=== PATIENT | female | born 1960 | race Caucasian/White ===

== ENCOUNTER → 2020-01-31 13:07 | Outpatient (CLI) | payer BC, SELFPAY ==
--- NOTE | ~2020-01-31 | MM_ITS ---
EXAMINATION: MM screening [facility] BI w elinor HISTORY: Screening mammogram TECHNIQUE: Craniocaudal and mediolateral oblique 3-D tomosynthesis images were obtained and synthetic 2-D images were generated. CAD analysis was submitted and interpreted. COMPARISON: 06/12/2018, 08/17/2016, 08/12/2015 BREAST PARENCHYMAL COMPOSITION: There are scattered areas of fibroglandular density. FINDINGS: RIGHT BREAST: A low-density masses present in the anterior third of the slightly inner, slightly lowe r breast. LEFT BREAST: There is no evidence of suspicious mass, calcification, or architectural distortion to s uggest malignancy. There has been no significant interval change. IMPRESSION: 1. Right breast mass. 2. Additional mammographic views and possible breast ultrasound are recommended. BI-RADS Category 0: Incomplete: Needs additional imaging evaluation. Reviewed, dictated and finalized at location A. GATOR OVERHEAD IMPRESSION: 1. Right breast mass. 2. Additional mammographic views and possible breast ultrasound are recommended . BI-RADS Category 0: Incomplete: Needs additional imaging evaluation.
== END ==
PROVIDERS: Visit Provider Obstetrics & Gynecology
DX: Z12.31 Encounter for screening mammogram for malignant neoplasm of breast (principal); R92.8 Other abnormal and inconclusive findings on diagnostic imaging of breast
CPT/HCPCS: 77063; 77067

== ENCOUNTER → 2020-02-24 08:38 | Outpatient (CLI) | payer BC, SELFPAY ==
--- NOTE | ~2020-02-24 | MMUS_ITS ---
EXAMINATION: MM diagnostic mammo unilat RT, US breast RT limited HISTORY: Follow-up right breast mass TECHNIQUE: Additional 3-D tomosynthesis images of the right breast were performed and synthetic 2-D i mages were generated. CAD analysis was submitted and interpreted. High resolution right breast ultras ound was performed. COMPARISON: 01/31/2020 BREAST PARENCHYMAL COMPOSITION: Breast composed of scattered areas of fibroglandular density. FINDINGS: MAMMOGRAPHIC FINDINGS: There is persistent focal asymmetry in the lower central aspect of the right breast near the areola. No suspicious calcifications or architectural distortion. ULTRASOUND: Limited periareolar ultrasound of the right breast demonstrates a 9 mm cyst. Mildly prominent ducts a lso noted. No suspicious masses to suggest malignancy. IMPRESSION: 1. No evidence for malignancy in the right breast. Benign findings. 2. Routine yearly screening mammogram and regular clinical breast examination are recommended. BI-RADS Category 2: Benign finding(s). Reviewed, dictated and finalized at location A. CTOR OF CATERING SALES IMPRESSION: 1. No evidence for malignancy in the right breast. Benign findings. 2. Routine yearly screening mammogram and regular clinical breast examination a re recommended. BI-RADS Category 2: Benign finding(s).
== END ==
PROVIDERS: Visit Provider Obstetrics & Gynecology
DX: N60.01 Solitary cyst of right breast (principal)
CPT/HCPCS: 76642; 77065

== ENCOUNTER → 2021-06-17 15:47 | Outpatient (CLI) | payer BC, SELFPAY ==
--- NOTE | ~2021-06-17 | MM_ITS ---
EXAMINATION: MM screening [facility] BI w elinor HISTORY: Screening mammogram TECHNIQUE: Craniocaudal and mediolateral oblique 3-D tomosynthesis images were obtained and synthetic 2-D images were generated. CAD analysis was submitted and interpreted. COMPARISON: 02/24/2020, 01/31/2020, 06/12/2018 BREAST PARENCHYMAL COMPOSITION: The breasts are heterogeneously dense, which may obscure small masses . FINDINGS: There is no suspicious mass, calcification, or architectural distortion to suggest malignan cy in either breast. There has been no suspicious interval change. IMPRESSION: 1. No mammographic evidence of malignancy. 2. Recommend routine screening mammography in one year. BI-RADS Category 1: Negative Reviewed, dictated and finalized at location A.
== END ==
PROVIDERS: Visit Provider Obstetrics & Gynecology
DX: Z12.31 Encounter for screening mammogram for malignant neoplasm of breast (principal)
CPT/HCPCS: 77063; 77067

== ENCOUNTER 2021-11-29 12:15 | Outpatient (CLI) | payer BC, SELFPAY ==
[2021-12-03 12:01] LABS: Testosterone Total 154 ng/dL (2-45)
== END 2021-11-29 12:16 | disposition home or self-care (01) ==
PROVIDERS: PCP Internal Medicine; Visit Provider Obstetrics & Gynecology
DX: N64.52 Nipple discharge (principal)
CPT/HCPCS: 36415; 84403

== ENCOUNTER → 2021-12-14 09:44 | Outpatient (CLI) | payer BC, SELFPAY ==
--- NOTE | ~2021-12-14 | MMUS_ITS ---
EXAMINATION: MM diagnostic [facility] BI w elinor, US breast BI complete HISTORY: Nipple discharge, left breast TECHNIQUE: Bilateral full field and spot 3-D tomosynthesis images were performed and synthetic 2-D im ages were generated. CAD analysis was submitted and interpreted. High resolution breast ultrasound wa s performed. COMPARISON: 06/17/2021 bilateral screening mammogram BREAST PARENCHYMAL COMPOSITION: The breasts are heterogeneously dense, which may obscure small masses . FINDINGS: MAMMOGRAPHIC FINDINGS: Heterogeneously dense stroma is noted in the anterior aspect of both breasts including both subareola r areas, which may obscure small masses. Bilateral breast ultrasound examination was performed. No mammographic suspicious mass, architectural distortion, malignant calcification, skin thickening o r retraction of either breast is evident. ULTRASOUND: No suspicious mass or shadowing of either breast is detected. Right breast: 7:00 4 cm from nipple: 1.7 mm sonolucency, most likely a small cyst Left breast: 12:00 2 cm from nipple: 4.9 x 6.1 mm sonolucency with through transmission posterior enhancement cons istent with simple cyst 12:00 1 cm from nipple: 2.1 mm simple cyst IMPRESSION: 1. No mammographic evidence of malignancy 2. Routine mammographic screening is recommended BI-RADS Category 2: Benign finding(s). Reviewed, dictated and finalized at location A. IMPRESSION: 1. No mammographic evidence of malignancy 2. Routine mammographic screening is recommended BI-RADS Category 2: Benign finding(s).
== END ==
PROVIDERS: PCP Physician Assistant Medical; Visit Provider Obstetrics & Gynecology
DX: N64.52 Nipple discharge (principal); N60.01 Solitary cyst of right breast; N60.02 Solitary cyst of left breast
CPT/HCPCS: 76641; 77062; 77066; G0279

== ENCOUNTER 2022-01-11 14:20 | Outpatient (CLI) | payer BC, SELFPAY ==
[2022-01-16 03:31] LABS: Testosterone Free 1.7 pg/mL (0.1-6.4); Testosterone Total 33 ng/dL (2-45)
== END 2022-01-11 14:21 | disposition home or self-care (01) ==
LOC: ANHLAB 14:21
PROVIDERS: PCP Physician Assistant Medical; Visit Provider Obstetrics & Gynecology
DX: R79.89 Other specified abnormal findings of blood chemistry (principal)
CPT/HCPCS: 36415; 84402; 84403

== ENCOUNTER 2022-06-02 13:01 | Outpatient (CLI) | payer BC, SELFPAY ==
--- NOTE | ~2022-06-02 | DEXA_ITS ---
Bone Density Report Name: STARR SMITH Age: 61 Sex: Female Ethnicity: White Date of : 1960 Indication: postmenopausal; screening for osteoporosis; hysterectomy; Referring Provider: HEIDI LANDAVERDE Study: Bone densitometry was performed. Exam Date: June 02, 2022 Accession number: [id number] Bone Density: Region BMD T-score Z-score Classification AP Spine(L1-L4) 1.183 1.2 2.8 Normal Femoral Neck (Left) 0.845 0.0 1.4 Normal Total Hip (Left) 1.103 1.3 2.4 Normal Femoral Neck (Right) 0.892 0.4 1.8 Normal Total Hip (Right) 1.040 0.8 1.9 Normal Total Hip Mean 1.071 1.1 2.2 Normal World Health Organization criteria for BMD impression classify patients as: Normal (T-score at or above -1.0), Osteopenia (T-score between -1.0 and -2.5), or Osteoporosis (T-score at or below -2.5). 10-year Fracture Risk: FRAX not reported because: All T-scores for Spine Total, Hip Total, Femoral Neck at or above -1.0 Clinical Information Provided by Patient: Has used the following medications: HRT (i.e. estrogen/hormone therapy), Calcium Has the following medical conditions: Hysterectomy Patient maximum height was 65.5 Menopause Age: 47 Does not regularly consume dairy products Drinks caffeinated beverages Onset of menses at age 10 Number of children 1 Impression: The patient has normal bone mass. Discussion: BONE DENSITY IS ABOVE THE MINIMUM DESIRABLE LEVEL AT ALL SKELETAL SITES TESTED. This patient?s bone mineral density is above the minimum desirable level (T-score -1.0 or better) at all sites measured. The patient should follow a healthful lifestyle (good nutrition with adequate calcium and vitamin D, and appropriate weight-bearing exercise). Follow-Up: Consider repeating this study in 5 years or sooner if there is some new clinical indication. Reported by: DEVON on 06/02/2022 1:31:00 PM. Reviewed, dictated and finalized at location ASilvana VERGARA
== END 2022-06-02 13:02 | disposition home or self-care (01) ==
PROVIDERS: PCP Family Medicine; Visit Provider Family Medicine
DX: Z78.0 Asymptomatic menopausal state (principal)
CPT/HCPCS: 77080

== ENCOUNTER 2022-12-06 16:41 | Outpatient (CLI) | payer BC, SELFPAY ==
[2022-12-06 17:29] LABS: Alanine Aminotransferase 32 U/L (6-35); Albumin Level 4.3 g/dL (3.5-5.1); Alkaline Phosphatase 89 U/L (38-126); Anion Gap 6 mmol/L (8-16); Aspartate Amino Transferase 28 U/L (14-36); Bilirubin,Total 0.5 mg/dL (0.2-1.3); Blood Urea Nitrogen 19 mg/dL (7-17); Carbon Dioxide 26 mmol/L (22-30); Chloride 103 mmol/L (98-107); Estimated Glomerular Filt Rate > 60; Glucose 90 mg/dL (65-110); Potassium 4.1 mmol/L (3.4-5.0); Sodium 135 mmol/L (137-145)
== END 2022-12-06 16:42 | disposition home or self-care (01) ==
LOC: ANHLAB 16:42
PROVIDERS: PCP Family Medicine; Visit Provider Family Medicine
DX: R73.01 Impaired fasting glucose (principal); I10 Essential (primary) hypertension
CPT/HCPCS: 36415; 80053; 83036

== ENCOUNTER → 2023-02-27 14:43 | Outpatient (CLI) | payer BC, SELFPAY ==
--- NOTE | ~2023-02-27 | MM_ITS ---
EXAMINATION: MM screening [facility] BI w elinor HISTORY: Screening TECHNIQUE: Craniocaudal and mediolateral oblique 3-D tomosynthesis images were obtained and synthetic 2-D images were generated. CAD analysis was submitted and interpreted. COMPARISON: Comparison to multiple prior studies sequentially, with oldest reviewed study dated 08/17. BREAST PARENCHYMAL COMPOSITION: Breast composed of scattered areas of fibroglandular density FINDINGS: There is no evidence of suspicious mass, calcification, or architectural distortion to sugg est malignancy in either breast. There has been no suspicious interval change. IMPRESSION: 1. No mammographic evidence of malignancy. 2. Recommend routine screening mammography in one year. BI-RADS Category 1: Negative Reviewed, dictated and finalized at location A. AL HUMAN RESOURCES DIRECTOR
== END ==
PROVIDERS: PCP Obstetrics & Gynecology; Visit Provider Obstetrics & Gynecology
DX: Z12.31 Encounter for screening mammogram for malignant neoplasm of breast (principal)
CPT/HCPCS: 77063; 77067

== ENCOUNTER 2023-03-17 10:18 | Outpatient (CLI) | payer BC, SELFPAY ==
[2023-03-17 11:15] LABS: Basophils Absolute Auto 0.1 K/mm3 (0.0-0.1); Basophils Percent Auto 0.7 % (0.2-1.2); Eosinophils Absolute Auto 0.2 K/mm3 (0-0.3); Eosinophils Percent Auto 2.7 % (0-4.4); Hematocrit 41.4 % (37.0-47.0); Immature Granulocyte Absolute 0.03 K/mm3 (0.00-0.031); Immature Granulocyte Percent A 0.4 % (0-0.5); Lymphocytes Absolute Auto 1.65 K/mm3 (0.9-3.2); Lymphocytes Percent Auto 21.9 % (18.3-44.2); Mean Corpuscular HGB Conc 31.4 g/dl (32-36); Mean Corpuscular Hemoglobin 29.3 pg (26-34); Mean Corpuscular Volume 93.2 fl (80-100); Mean Platelet Volume 10.2 fl (7.4-10.4); Monocytes Absolute Auto 0.6 K/mm3 (0.1-0.6); Monocytes Percent Auto 7.4 % (2.6-8.5); Neutrophils Absolute Auto 5.1 K/mm3 (1.3-6.7); Neutrophils Percent Auto 66.9 % (45.5-73.1); Platelet Count Result 295 k/mm3 (150-375); Red Blood Count 4.44 M/mm3 (4.2-5.4); Red Cell Distribution Width 13.9 % (11.5-14.5); White Blood Count 7.5 K/mm3 (4.5-10.0)
[2023-03-17 12:15] LABS: Iron 109 ug/dL (37-170)
[2023-03-17 12:24] LABS: Percent Iron Saturation 30 % (20-50)
== END 2023-03-17 10:19 | disposition home or self-care (01) ==
PROVIDERS: PCP Family Medicine; Visit Provider Physician Assistant Medical
DX: K92.1 Melena (principal)
CPT/HCPCS: 36415; 82728; 83540; 83550; 85025

== ENCOUNTER 2023-03-29 00:56 | Day surgery (SDC) | payer BC, SELFPAY ==
[2023-03-24 08:38] VITALS: BMI 36.5
--- NOTE | 2023-03-27 11:47 | SUR.PREOP ---
Patient called regarding upcoming procedure. Reviewed preop instructions, appointment times, and procedure prep.
--- NOTE | 2023-03-27 12:04 | SUR.PREOP ---
Patient called regarding upcoming procedure. Reviewed preop instructions, appointment times, and procedure prep. Instructions emailed pt per her request since she has not received them in the mail yet.
--- NOTE | 2023-03-28 15:25 | PM.HPGS ---
History of Present Illness History of Present Illness Consent: Risks, benefits, and alternatives have been discussed and questions answered. Patient agrees to proceed with procedure. Chief complaint: melena Narrative: Shi Shell is a 62 year old female Who had bloody diarrhea for about 24 hours 10 days ago. Review of Systems Review of Systems: All systems reviewed & are unremarkable except as noted in HPI and below PMFSH Past Medical History Medical History Hypertension Vaginal delivery x1 Surgical History Surgical History History of bilateral salpingo-oophorectomy 2009 History of bilateral tubal ligation History of bunionectomy History of dilation and curettage History of hysterectomy 2009 History of surgery on wrist Hx of sinus surgery [place] teeth extracted Family History Family History Father Leukemia Mother Diabetes mellitus CHF (congestive heart failure) Arthritis Recurrent UTI Social History Social History Smoking status: Never smoker Alcohol intake: current Alcohol use details: socially Substance use: never Substance use type: does not use Lack of Transportation: No Lack of Food: Never True Current Housing: I Have Housing Concerned About Future Housing: No Difficulty Paying Gas/Electric Bills: No Difficulty Paying for Meds: No Currently Unemployed: No Education: Bachelor's Degree Living arrangements: with family Occupation/Education: occupation Gender identity (if verbalized by the patient): Female Sexual Orientation (if Verbalized by the Patient): Straight or Heterosexual Spiritual care concerns: No Meds Home Medications and Allergies Home Medications Medication Instructions Recorded Confirmed Type ascorbic acid (vitamin C) 500 mg 500 mg PO DAILY 06/02/20 03/29/23 History capsule magnesium citrate 100 mg capsule 100 mg PO DAILY 06/02/20 03/29/23 History multivitamin 1 tablet PO DAILY 06/02/20 03/29/23 History omega-3 fatty acids 1,000 mg 1,000 mg PO DAILY 06/02/20 03/29/23 History capsule (Fish Oil Concentrate) calcium carbonate 600 mg calcium 600 mg PO DAILY 11/29/21 03/29/23 History (1,500 mg) tablet (Calcium) triamcinolone acetonide 0.1 % 1 applic topical BID PRN rash #30 05/20/22 03/29/23 Rx topical ointment grams Testosterone compound cream See Rx Instructions .Route 07/04/22 03/29/23 Rx .COMPLEX #1 ea estradiol 1 mg tablet 1 mg PO DAILY #90 tabs 11/07/22 03/29/23 Rx losartan 100 mg tablet 100 mg PO DAILY #90 tabs 12/06/22 03/29/23 Rx Allergies Allergy/AdvReac Type Severity Reaction Status Date / Time Penicillins Allergy Unknown Hives Verified 03/29/23 10:15 morphine AdvReac Intermediate Hallucinati Verified 03/29/23 10:15 ng DUST MITES Allergy Unknown Unknown Uncoded 03/29/23 10:15 SPRING POLLENS Allergy Unknown Unknown Uncoded 03/29/23 10:15 Exam Resp: Auscultation: clear to auscultation bilaterally Cardio: Rate: regular rate Rhythm: regular rhythm GI: GI Palp: Yes Soft to palpation and No Tenderness to palpation present (GI) Assessment and Plan Assessment and plan (1) Bloody diarrhea: Code(s): R19.7 - Diarrhea, unspecified Status: Acute Assessment and Plan: Colonoscopy with possible biopsy or polypectomy or cautery or injection of substances.
[2023-03-29 10:16] VITALS: BP 148/100; PULSE 84; RESP 17; TEMP 36.3; O2SAT 94; BMI 35.2
[2023-03-29] MEDS: LACTATED RINGERS 1,000 ML 150 ML IV CONT (10:29)
--- NOTE | 2023-03-29 10:44 | WPDANESEPPF ---
Anes - Initial Pre Proc Eval Procedure: Operation Date: 03/29/23 11:30 Proposed Procedures p Colonoscopy - Jethro Dorman MD Date/Time: 03/29/23 10:44 Surgeon: Jethro Dorman MD Pre Op Diagnosis: melena Patient Data Age: 62 Gender: F Height: 1.66 m Weight: 97.4 kg Last Vital Signs Temp 97.4 F L 03/29/23 10:16 Pulse 84 03/29/23 10:16 Resp 17 03/29/23 10:16 BP 148/100 H 03/29/23 10:16 Pulse Ox 94 03/29/23 10:16 O2 Del Method Room Air 03/29/23 10:16 Allergies Allergy/AdvReac Type Severity Reaction Status Date / Time Penicillins Allergy Unknown Hives Verified 03/29/23 10:15 morphine AdvReac Intermediate Hallucinati Verified 03/29/23 10:15 ng DUST MITES Allergy Unknown Unknown Uncoded 03/29/23 10:15 [place]ING POLLENS Allergy Unknown Unknown Uncoded 03/29/23 10:15 Home Medications Medication Instructions Recorded Confirmed Type ascorbic acid (vitamin C) 500 mg 500 mg PO DAILY 06/02/20 03/29/23 History capsule magnesium citrate 100 mg capsule 100 mg PO DAILY 06/02/20 03/29/23 History multivitamin 1 tablet PO DAILY 06/02/20 03/29/23 History omega-3 fatty acids 1,000 mg 1,000 mg PO DAILY 06/02/20 03/29/23 History capsule (Fish Oil Concentrate) calcium carbonate 600 mg calcium 600 mg PO DAILY 11/29/21 03/29/23 History (1,500 mg) tablet (Calcium) triamcinolone acetonide 0.1 % 1 applic topical BID PRN rash #30 05/20/22 03/29/23 Rx topical ointment grams Testosterone compound cream See Rx Instructions .Route 07/04/22 03/29/23 Rx .COMPLEX #1 ea estradiol 1 mg tablet 1 mg PO DAILY #90 tabs 11/07/22 03/29/23 Rx losartan 100 mg tablet 100 mg PO DAILY #90 tabs 12/06/22 03/29/23 Rx Patient hx anesthesia problems: none Family hx anesthesia problems: none Results Review: All pre-operative results and documents have been reviewed as part of the pre-operative evaluation. [facility] Past Medical History Medical History Hypertension Vaginal delivery x1 Surgical History Surgical History History of bilateral salpingo-oophorectomy 2009 History of bilateral tubal ligation History of bunionectomy History of dilation and curettage History of hysterectomy 2009 History of surgery on wrist Hx of sinus surgery [place] teeth extracted Family History Family History Father Leukemia Mother Diabetes mellitus CHF (congestive heart failure) Arthritis Recurrent UTI Social History Social History Smoking status: Never smoker Alcohol intake: current Alcohol use details: socially Substance use: never Substance use type: does not use Lack of Transportation: No Lack of Food: Never True Current Housing: I Have Housing Concerned About Future Housing: No Difficulty Paying Gas/Electric Bills: No Difficulty Paying for Meds: No Currently Unemployed: No Education: Bachelor's Degree Living arrangements: with family Occupation/Education: occupation Gender identity (if verbalized by the patient): Female Sexual Orientation (if Verbalized by the Patient): Straight or Heterosexual Spiritual care concerns: No Anes - Eval Final PreProcedure Day of Procedure 03/29/23 10:44 Patient weight: obese Heart: regular rate and rhythm Lungs: clear to auscultation Airway: Mallampati scale class II Neurological: alert and oriented Last oral intake: >/= 8 hours ASA classification: III Emergent: no Anesthetic plan: proceed Anesthesia type and monitoring: general GIVS and standard monitoring Results Review: All pre-operative results and documents have been reviewed as part of the pre-operative evaluation. Informed Consent: The patient's anesthetic plan and its attendant risks and benefits were discussed with the patient/family/POA. Qu
[2023-03-29 12:07] VITALS: BP 128/73; PULSE 81; RESP 17; O2SAT 98
[2023-03-29 12:17] VITALS: BP 126/74; PULSE 79; RESP 20; O2SAT 100
[2023-03-29 12:27] VITALS: BP 137/80; PULSE 78; RESP 20; O2SAT 98
== END 2023-03-29 12:37 | disposition home or self-care (01) ==
PROVIDERS: PCP Physician Assistant Medical; Visit Provider Internal Medicine Gastroenterology
PROC: 0DJD8ZZ Inspection of Lower Intestinal Tract, Via Natural or Artificial Opening Endoscopic (ICD-10-PCS; CPT 45378; principal; 2023-03-29 11:30)
DX: K64.8 Other hemorrhoids (principal); I10 Essential (primary) hypertension; Z79.890 Hormone replacement therapy
CPT/HCPCS: 45378; J2704; J7120

== ENCOUNTER 2023-04-07 09:44 | Outpatient (NON) | payer BC, SELFPAY ==
[2023-04-07 10:37] LABS: IFOB Positive Control Positive; Immunochemical Fecal Occult Bl Positive (N)
== END 2023-04-07 09:45 | disposition home or self-care (01) ==
LOC: ANHLAB 09:46
PROVIDERS: PCP Physician Assistant Medical; Visit Provider Physician Assistant Medical
DX: K92.1 Melena (principal)
CPT/HCPCS: 82274

== ENCOUNTER 2023-05-08 10:59 | Outpatient (CLI) | payer BC, SELFPAY ==
--- NOTE | ~2023-05-08 | XR_ITS ---
EXAMINATION: XR sacrum coccyx min 2V INDICATION: Persistent bilateral hip and low back pain TECHNIQUE: Three views of the sacrum and coccyx are obtained. COMPARISON: None available FINDINGS: Bone alignment is normal. There is no fracture. There is moderate osteoarthritis of the hip s. Osteitis pubis is noted. There is moderate spondylosis of the visualized lumbar spine. IMPRESSION: 1. No acute osseous abnormality. Reviewed, dictated and finalized at location B. AL ASSISTANT
--- NOTE | ~2023-05-08 | XR_ITS ---
EXAMINATION: XR lumbar spine 2-3V DATE: 05/08/2023 11:30 INDICATION: Hip and lower back pain TECHNIQUE: Anteroposterior and lateral views of the lumbar spine, and cone-down lateral view of the l umbosacral junction were obtained. COMPARISON: None. FINDINGS: There are 2 mm of anterolisthesis of L3 on L4. There is no fracture. There is moderate loss of intervertebral disc space height at L2-3. There is moderate to severe facet joint osteoarthritis at L3-4, L4-5, and L5-S1. There is moderate osteoarthritis of the hips. IMPRESSION: 1. Moderate lumbar spondylosis without acute findings. Reviewed, dictated and finalized at location B. GER COMMUNITY
--- NOTE | ~2023-05-08 | XR_ITS ---
EXAMINATION: XR pelvis 1-2V INDICATION: Bilateral hip pain TECHNIQUE: AP view the pelvis is obtained. COMPARISON: None available FINDINGS: There is moderate osteoarthritis of the hips. Bone alignment is normal. There is no fractur e. Osteitis pubis is noted. The soft tissues are unremarkable. IMPRESSION: 1. Moderate osteoarthritis of the hips and osteitis pubis without acute osseous abnormality identifie d. Reviewed, dictated and finalized at location B. BILITY ADVOCATE IMPRESSION: 1. Moderate osteoarthritis of the hips and osteitis pubis without acute osseous abnormality identified.
== END 2023-05-08 11:00 | disposition home or self-care (01) ==
PROVIDERS: PCP Family Medicine; Visit Provider Physician Assistant Medical
DX: M53.3 Sacrococcygeal disorders, not elsewhere classified (principal); M16.0 Bilateral primary osteoarthritis of hip; M86.8X5 Other osteomyelitis, thigh; M43.06 Spondylolysis, lumbar region; W10.8XXS Fall (on) (from) other stairs and steps, sequela
CPT/HCPCS: 72100; 72170; 72220

== ENCOUNTER 2024-01-01 10:07 | Outpatient (CLI) | payer BC, SELFPAY ==
[2024-01-01 10:26] LABS: Hematocrit 43.7 % (37.0-47.0); Hemoglobin 14.4 g/dL (12.0-15.0); Mean Corpuscular Hemoglobin 30.7 pg (26-34); Mean Corpuscular Volume 93.2 fl (80-100); Mean Platelet Volume 9.9 fl (7.4-10.4); Platelet Count Result 291 k/mm3 (150-375); Red Blood Count 4.69 M/mm3 (4.2-5.4); Red Cell Distribution Width 14.7 % (11.5-14.5); White Blood Count 7.5 K/mm3 (4.5-10.0)
[2024-01-01 10:28] LABS: Add Urine Microscopic? NO; Appearance Urine Clear (Clear); Bilirubin Urine Negative (Negative); Blood Urine Negative (Negative); Color Urine Yellow (Yellow); Glucose Urine UA Negative (Negative); Ketones Urine Negative (Negative); Leukocyte Esterase Ur Negative LEU/UL (Negative); Nitrate Urine Negative (Negative); Protein Urine Negative (Negative); Specific Grav Ur 1.023 (1.001-1.035); Urobilinogen Urine 0.2 mg/dL (<2.0)
[2024-01-01 10:38] LABS: Hemoglobin A1C 6.2 % (<5.7)
[2024-01-01 10:42] LABS: Alanine Aminotransferase 33 U/L (6-35); Albumin Level 4.3 g/dL (3.5-5.1); Alkaline Phosphatase 97 U/L (38-126); Anion Gap 2 mmol/L (4-12); Aspartate Amino Transferase 29 U/L (14-36); Bilirubin,Total 0.7 mg/dL (0.2-1.3); Blood Urea Nitrogen 25 mg/dL (7-17); Calcium 9.7 mg/dL (8.4-10.2); Carbon Dioxide 30 mmol/L (22-30); Chloride 104 mmol/L (98-107); Cholesterol 249 mg/dL (0-200); Estimated Glomerular Filt Rate > 60; Glucose 111 mg/dL (65-110); HDL Direct 88 mg/dL; Potassium 4.1 mmol/L (3.4-5.0); Sodium 136 mmol/L (137-145); Triglycerides 93 mg/dL (<150)
[2024-01-01 10:53] LABS: LDL Cholesterol Direct 115 mg/dL
== END 2024-01-01 10:08 | disposition home or self-care (01) ==
PROVIDERS: PCP Family Medicine; Visit Provider Family Medicine
DX: Z00.00 Encounter for general adult medical examination without abnormal findings (principal); R73.01 Impaired fasting glucose; I10 Essential (primary) hypertension; R53.83 Other fatigue; E78.5 Hyperlipidemia, unspecified
CPT/HCPCS: 36415; 80053; 80061; 81003; 83036; 84443; 85027

== ENCOUNTER 2024-05-21 12:45 | Outpatient (CLI) | payer BC, SELFPAY | END 2024-05-21 12:46 | disposition home or self-care (01) | PROVIDERS: PCP Family Medicine; Visit Provider Family Medicine | DX: M16.12 Unilateral primary osteoarthritis, left hip (principal); S73.192A Other sprain of left hip, initial encounter; X58.XXXA Exposure to other specified factors, initial encounter; M76.892 Other specified enthesopathies of left lower limb, excluding foot; M70.72 Other bursitis of hip, left hip | CPT/HCPCS: 73721 ==

== ENCOUNTER 2024-06-13 14:41 | Outpatient (CLI) | payer BC, SELFPAY ==
--- NOTE | ~2024-06-13 | MM_ITS ---
EXAMINATION: MM screening [facility] BI w elinor HISTORY: Screening TECHNIQUE: Craniocaudal and mediolateral oblique 3-D tomosynthesis images were obtained and synthetic 2-D images were generated. CAD analysis was submitted and interpreted. COMPARISON: 02/27/2023 and dating back to 02/24/2020 BREAST PARENCHYMAL COMPOSITION: There are scattered areas of fibroglandular density. FINDINGS: Punctate calcifications detected bilaterally, vascular in origin and benign in appearance. Stable parenchymal pattern without suspicious microcalcifications, architectural distortion, discrete masses or significant asymmetry. IMPRESSION: 1. No mammographic evidence of malignancy. 2. Recommend routine screening mammography in one year. BI-RADS Category 2: Benign finding(s). Reviewed, dictated and finalized at location A.
== END 2024-06-13 14:42 | disposition home or self-care (01) ==
LOC: MICIMG 14:41
PROVIDERS: PCP Family Medicine; Visit Provider Nurse Practitioner Family
DX: Z12.31 Encounter for screening mammogram for malignant neoplasm of breast (principal)
CPT/HCPCS: 77063; 77067

== ENCOUNTER 2024-12-20 14:13 | Outpatient (CLI) | payer OTHER, SELFPAY ==
--- OUTSIDE RECORDS SUMMARY | 2024-12-20 14:16 | XMS_ITS | Clinical Summary ---
Author Organization [facility] Address [address] [place] [address] Care Team Providers Care Twisting Department End Finder Name Role Phone Juan Ureña MD Primary Care Provider [phone] Allergies Active Allergy Reactions Criticality Noted Date Comments Grass Pollen Hives Medium 09/11/2023 House Dust Hives Medium 09/11/2023 Penicillin G Hives Medium 03/10/2015 Medications ascorbic acid, vitamin C, powder Take 1 tablet by mouth daily Active CALCIUM ORAL Take 1 tablet by mouth daily Active estradioL (ESTRACE) 1 mg tablet 4 Active fluconazole (DIFLUCAN) 150 mg tablet 4 Active losartan (COZAAR) 100 mg tablet 4 Active triamcinolone (KENALOG) 0.1 % ointment APPLY TOPICALLY TO THE AFFECTED AREA TWICE DAILY NEEDED FOR RASH 4 Active MULTIVITAMIN ORAL Take 1 tablet by mouth daily Active omega-3 fatty acids-fish oil 300-1,000 mg capsule Take 1 capsule (1 g total) by mouth daily Active testosterone (ANDROGEL,TESTI M,VOGELXO) 50 mg/5 gram (1 %) Place 1 each on the skin daily Active benzonatate (TESSALON) 200 mg capsuleIndicati ons:COVID Take 1 capsule (200 mg total) by mouth 3 (three) times a day as needed for cough 30 capsule 4 Active Active Problems No known active problems Social History Tobacco Use Types Packs/Day Years Used Date Smoking Tobacco: Never Assessed Comments Unknown Sex and Gender Information Value Date Recorded Sex Assigned at Not on file Legal Sex Female 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 Gender Identity Not on file Sexual Orientation Not on file Obstetrics History Last Filed Vital Signs Vital Sign Reading Time Taken Comments Blood Pressure 110/80 09/11/2023 11:55 AM CDT Pulse 70 09/11/2023 11:55 AM CDT Temperature 36.3 C (97.4 F) 09/11/2023 11:55 AM CDT Respiratory Rate 16 09/11/2023 11:55 AM CDT Oxygen Saturation 97% 09/11/2023 11:55 AM CDT Inhaled Oxygen Concentration - - Weight 97.3 kg (214 lb 6.4 oz) 09/11/2023 11:55 AM CDT Height 163.1 cm (5' 4.21) 09/11/2023 11:55 AM C DT Body Mass Index 36.56 09/11/2023 11:55 AM CDT Plan of Treatment Health Maintenance Due Date Last Done Comments Breast Cancer Screening-Mammogram 1960 Cervical Cancer Screening 1960 Colon Cancer Screening-Colonoscopy 1960 Depression Screening 1960 Fall Risk Assessment 1960 Hepatitis C Screening 1960 Osteoporosis Screening-Bone Density Scan 1960 DTaP/Tdap/Td Vaccine (1 - Tdap) 12/11/1970 Hepatitis B Screening 12/11/1977 Pneumococcal vaccine 65+ (1 of 1 - PCV) 12/11/2009 Covid-19 Vaccine (4 - season) 2024 03/16/2022, 07/10/2020, 06/12/2020 Influenza Vaccine (#1) 2024 01/30/2023, 2021 Well Visit 65+ 12/11/2024 Zoster Vaccine Completed 05/13/2022, 03/16/2022 Insurance [employer] [place] [place]PO [place] [facility] Care Teams Twisting Department End Finder Relationship Specialty Start Date End Date Juan Ureña MD [address] [place] [id number] PCP - General Internal Medicine 06/14/21
[2024-12-20 14:36] LABS: Hematocrit 40.5 % (37.0-47.0); Hemoglobin 13.1 g/dL (12.0-15.0); Immature Granulocyte Percent A 0.4 % (0-0.5); Lymphocytes Absolute Auto 2.32 K/mm3 (0.9-3.2); Mean Corpuscular HGB Conc 32.3 g/dl (32-36); Mean Corpuscular Hemoglobin 30.9 pg (26-34); Mean Corpuscular Volume 95.5 fl (80-100); Nucleated Red Blood Cells Absolute Auto 0.000 K/mm3 (0.0-0.012); Nucleated Red Blood Cells Perc 0.0 % (0.0-0.2); Platelet Count Result 293 k/mm3 (150-375); Red Blood Count 4.24 M/mm3 (4.2-5.4); White Blood Count 8.4 K/mm3 (4.5-10.0)
[2024-12-20 14:46] LABS: Alanine Aminotransferase 26 U/L (6-35); Albumin Level 4.3 g/dL (3.5-5.1); Alkaline Phosphatase 71 U/L (38-126); Anion Gap 8 mmol/L (4-12); Aspartate Amino Transferase 26 U/L (14-36); Bilirubin,Total 0.5 mg/dL (0.2-1.3); Blood Urea Nitrogen 22 mg/dL (7-17); Calcium 9.1 mg/dL (8.4-10.2); Carbon Dioxide 25 mmol/L (22-30); Chloride 102 mmol/L (98-107); Estimated Glomerular Filt Rate > 60; Glucose 136 mg/dL (65-110); Potassium 3.9 mmol/L (3.4-5.0); Sodium 135 mmol/L (137-145); Total Protein 7.4 g/dL (6.3-8.2)
== END 2024-12-20 14:14 | disposition home or self-care (01) ==
PROVIDERS: PCP Family Medicine; Visit Provider Orthopaedic Surgery
DX: M70.72 Other bursitis of hip, left hip (principal); Z79.1 Long term (current) use of non-steroidal anti-inflammatories (NSAID)
CPT/HCPCS: 36415; 80053; 85025

== ENCOUNTER 2025-03-06 10:50 | Outpatient (CLI) | payer OTHER, SELFPAY ==
[2025-03-06 11:41] LABS: Cholesterol 220 mg/dL (0-200); HDL Direct 96 mg/dL; Triglycerides 117 mg/dL (<150)
[2025-03-06 11:45] LABS: Hemoglobin A1C 5.7 % (<5.7)
--- OUTSIDE RECORDS SUMMARY | 2025-03-06 12:08 | XMS_ITS | Clinical Summary ---
Author Organization [facility] Address [address] [place] [address] Phone Care Team Providers Care Charging Manipulator Name Role Phone Juan Ureña MD Primary Care Provider [phone] Allergies Active Allergy Reactions Criticality Noted Date Comments Penicillin G Hives 03/10/2015 Medications LOSARTAN POTASSIUM PO Take 20 mg by mouth daily. Active ESTROGENS CONJ SYNTHETIC A PO Take 1 Tab by mouth daily. Active TESTOSTERONE TD 1 Tab by Transdermal route daily. Active [place]-3 Fatty Acids (FISH OIL PO) Take 1 Cap by mouth daily. Active Calcium Acetate, Phos Binder, (CALCIUM ACETATE PO) Take 1 Tab by mouth daily. Active Ascorbic Acid (VITAMIN C PO) Take 1 Tab by mouth daily. Active Cyanocobalamin (VITAMIN B12 PO) Take 1 Tab by mouth daily. Active B Complex Vitamins (VITAMIN B COMPLEX PO) Take 1 Tab by mouth daily. Active Multiple Vitamin (MULTI-VITAMIN PO) Take 1 Tab by mouth daily. Active Cholecalciferol (VITAMIN D PO) Take 1 Tab by mouth daily. Active Active Problems No known active problems Family History Medical History Relation Name Comments Cancer Father Congestive Heart Failure Mother Diabetes Mother Heart Attack Mother High Cholesterol Mother Hypertension Mother Osteoarthritis Mother Rashes/Skin Problems Mother Stroke Mother Relation Name Status Comments Father Mother Alive Social History Tobacco Use Types Packs/Day Years Used Date Smoking Tobacco: Never Alcohol Use Standard Drinks/Week Comments Yes 0 (1 standard drink = 0.6 oz pur e alcohol) Comments No Sex and Gender Information Value Date Recorded Sex Assigned at Not on file Legal Sex Female 10:39 AM 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 Gender Identity Not on file Sexual Orientation Not on file Last Filed Vital Signs Vital Sign Reading Time Taken Comments Blood Pressure 130/90 03/18/2015 12:00 PM 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 Pulse 74 03/18/2015 12:00 PM 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 Temperature 35.4 C (95.7 F) 03/18/2015 12:00 PM 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 Respiratory Rate 16 03/18/2015 12:00 PM 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 Oxygen Saturation 95% 03/18/2015 12:00 PM 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 Inhaled Oxygen Concentration - - Weight 88.9 kg (196 lb) 03/10/2015 7:00 AM 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 Height 165.1 cm (5' 5) 03/10/2015 7:00 AM 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 Body Mass Index 32.62 03/10/2015 7:00 AM 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 Plan of Treatment Health Maintenance Due Date Last Done Comments Hepatitis C Virus (HCV) Screening 1960 TdaP Immunization 1960 Cologuard 12/11/2004 Colonoscopy 12/11/2004 Colorectal Cancer Screening 12/11/2004 Immunochemical Fecal Occult Blood 12/11/2004 Pneumococcal Immunization (5 0+ years) (1 of 1 - PCV) 12/11/2009 Zoster Immunization (1 of 2) 12/11/2009 Influenza Immunization (#1) 2024 SARS-COV-2 Immunization ( - 2023- season) 2024 Respiratory Syncytial Virus (RSV) Immunization (Adult) (1 - 1-dose 75+ series) 12/11/2034 Hepatitis B Immunization Aged Out No longer eligible based on patient's age to complete this topic Human Papillomavirus (HPV) Immunization Aged Out No longer eligible b ased on patient's age to complete this topic Meningococcal Immunization (ACWY) Aged Out No longer eligible based on patient's age to complete this topic Rotavirus Immunization Aged Out No lo nger eligible based on patient's age to complete this topic Medical Devices Implanted Type Area Loft Worker Head Device Identifier Shelf Expiration Date Model / Serial / Lot Asnis Micr Screw Implanted:Qty: 1 on 03/18/2015 by Cristi Krishnamurthy DPM at [facility] Right: Foot [employer] [id number] / / [id number] Couch Easy Clip Implanted:Qty: 1 on 03/18/2015 by Cristi Krishnamurthy DPM at [facility] Right: Foot [employer] 08/19/2019 [id number] [place] [address] [address] [place] [address] Care Teams Charging Manipulator Relationship Specialty Start Date End Date Juan Ureña MD [address] [place] [phone] PCP - General Internal Medicine 03/12/15
--- OUTSIDE RECORDS SUMMARY | 2025-03-06 12:08 | XMS_ITS | Clinical Summary ---
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
[2025-03-09 20:07] LABS: Free Testosterone (Direct) 2.2 pg/mL (0.0-4.2)
== END 2025-03-06 10:51 | disposition home or self-care (01) ==
PROVIDERS: PCP Family Medicine; Referring Provider Nurse Practitioner Family; Visit Provider Student in an Organized Health Care Education/Training Program
DX: E78.5 Hyperlipidemia, unspecified (principal); R73.01 Impaired fasting glucose; Z79.890 Hormone replacement therapy
CPT/HCPCS: 36415; 80061; 83036; 84402; 84403